=== PATIENT | female | born 1945 | race Caucasian/White ===

== ENCOUNTER 2019-08-06 15:47 | Inpatient (IN) | payer MEDICARE, OTHER ==
[~2019-08-06] VITALS: Ht 160 cm; Wt 85.8 kg
[~2019-08-06 15:47] MED LIST: ALBU90OI INH; ASCO500 PO; Aldactazide 251 EACH PO; Aspir 8181 MG PO; BETA-CAROTENE PO; CALCIUM GLUCONA45 MG PO; CENTRUM SILVER1 EAC2 PO; ESTR2 PO; FOLI1 PO; Flonase 0.05% N16 GM; GLUCHON PO; IBUP200 PO; IRON PO; Ipratropium Bro15 ML; LORA1SY PO; METO100ER PO; METO5A PO; MONT10T PO; NAPR500 PO; NIAC500ER PO; PROG100 PO; SERT50 PO
--- NOTE | 2019-08-09 06:45 | NUR ---
History, Chart, Medications and Allergies reviewed before start of procedure. Patient confirms NPO status and agrees with scheduled surgery. Lungs clear T/O to Auscultation. Patient reports completing Chlorhexadine shower X2 prior to admission to hospital. Pre-Op teaching done. Pt verbalizes understanding. NO JEWELRY, DENTURES OR HEARING DEVICES PRESENT. GLASSES TO PACU.
--- NOTE | 2019-08-09 07:25 | NUR ---
NOZIN SWABS TO BILATERAL NARES IN PREOP/SDS.
--- NOTE | 2019-08-09 07:36 | NUR ---
TRACKER CARD EXPLAINED AND OPPORTUNITY FOR QUESTIONS PROVIDED. PATIENT UP FOR UNMEASURED VOID IMMEDIATELY PRE-OR. PATIENT SLOW WITH MOVEMENTS.
--- NOTE | 2019-08-09 07:40 | NUR ---
PATIENT STATES BILATERAL HEARING DEVICES LEFT AT HOME. SOME FLANDREAU NOTED, HELPS TO GET THE PATIENT'S EYE CONTACT PRIOR TO SPEAKING.
--- NOTE | 2019-08-09 07:41 | NUR ---
PATIENT WAS VERY PAINFUL WITH STANDING AND TRANSFERRING, DID WELL WITH WALKER AND BEDSIDE COMMODE, THOUGH SLOW TO MOVE.
--- NOTE | 2019-08-09 18:30 | NUR ---
SHIFT SUMMARY PT STRUGGLED WITH NAUSEA TODAY BUT AFTER THERAPY, ZOFRAN, COOL WASHCLOTH, & A NAP SEEMS TO BE FEELING BETTER. TOOK BITES OF DINNER AND PO PAIN MEDS. UP TO VOID W/ BSC. DISCUSSED GOALS OF USING BATHROOM BUT PT NOT INTERESTED DUE. WILL ENCOURAGE BATHROOM VS BSC.
[2019-08-10 04:16] LABS: BASOPHILS ABSOLUTE AUTO 0.03 K/mm3 (0.00-0.23); BASOPHILS PERCENT AUTO 0 % (0-2); EOSINOPHILS ABSOLUTE AUTO 0.02 K/mm3 (0.00-0.68); EOSINOPHILS PERCENT AUTO 0 % (0-6); Hematocrit 28.9 % (33.0-51.0); Hemoglobin 9.8 g/dL (11.5-16.0); IMMATURE GRAN ABSOLUTE AUTO 0.06 K/mm3 (0.00-0.10); IMMATURE GRAN PERCENT AUTO 0 % (0-1); LYMPHOCYTES ABSOLUTE AUTO 1.83 K/mm3 (0.84-5.20); LYMPHOCYTES PERCENT AUTO 14 % (21-46); MONOCYTES ABSOLUTE AUTO 1.19 K/mm3 (0.16-1.47); MONOCYTES PERCENT AUTO 9 % (4-13); Mean Corpuscular HGB 31.6 pg (26.0-34.0); Mean Corpuscular HGB Conc 33.9 g/dL (31.5-36.5); Mean Corpuscular Volume 93 fL (80-100); Mean Platelet Volume 9.4 fL (9.1-12.4); NEUTROPHILS ABSOLUTE AUTO 10.47 K/mm3 (1.96-9.15); NEUTROPHILS PERCENT AUTO 77 % (41-73); Platelet Count 293 K/mm3 (150-400); RDW Coefficient Variation 12.2 % (11.7-14.2); RDW Standard Deviation 41.6 fL (35.1-46.3)
[2019-08-10 04:49] LABS: Anion Gap 10 mmol/L (6-16); Blood Urea Nitrogen 19 mg/dL (8-24); Bun/Creatinine Ratio 24.6 (12.0-20.0); CO2, Blood 22 mmol/L (21-32); Calcium, Blood 7.7 mg/dL (8.5-10.1); Chloride, Blood 102 mmol/L (98-108); Creatinine, Blood 0.77 mg/dL (0.40-1.00); Glomerular Filtration Rate >60 (60-); Glucose, Blood 106 mg/dL (70-99); Magnesium, Blood 1.4 mg/dL (1.6-2.4); Potassium, Blood 3.2 mmol/L (3.5-5.5); Sodium, Blood 134 mmol/L (136-145)
--- NOTE | 2019-08-10 06:26 | NUR ---
SHIFT SUMMARY LYING IN HIGH FOWLERS WITH EYES CLOSED. HAS RESTED WELL, AND HAS NOT REQUIRED PRN PAIN MEDS THIS SHIFT. REPOSITIONED SELF FOR COMFORT PRN. AMBULATED TO [facility] WITH GAIT BELT AND FWW X2 THIS SHIFT, TOLERATED WELL. CURRENTLY SITTING UP IN CHAIR AT BEDSIDE WHILE WATCHING TV. DENIES FURTHER NEEDS OR WANTS AT THIS TIME. SAFETY MEASURES IN PLACE. WILL GIVE HAND OFF TO ONCOMING SHIFT USING SBAR.
[2019-08-10] MEDS ORDERED: ACET500 PO (11:01)
[2019-08-10] MEDS ORDERED: OXYC5 PO (11:12)
--- NOTE | 2019-08-10 12:22 | NUR ---
DISCHARGE PT PROVIDED WITH WRITTEN AND VERBAL DISCHARGE INSTRUCTIONS. SHE REPORTED UNDERSTANDING. DRESSINGS SENT HOME WITH THE PATIENT. PT REPORTED PAIN MANAGED, VSS. PT ESCORTED OUT IN W/C BY DORYS SUTHERLAND.
== END 2019-08-10 12:20 | disposition home or self-care (01) | DRG 470 ==
LOC: SURS 08-09 06:06 → PRE IP 08-09 07:30 → SURS 08-09 11:41
PROVIDERS: ADMIT Orthopaedic Surgery
PROC: 0SRB04A Replacement of Left Hip Joint with Ceramic on Polyethylene Synthetic Substitute, Uncemented, Open Approach (ICD-10-PCS; principal; 2019-08-09 07:30)
DX: M16.12 Unilateral primary osteoarthritis, left hip (principal); I10 Essential (primary) hypertension
CPT/HCPCS: 36415; 72170; 80048; 83735; 85025; 97110; 97116; 97162; 97530; C1776; J0171; J0690; J0735; J1100; J1170; J1885; J2250; J2370; J2405; J2704; J2795; J3010; J7120

== ENCOUNTER 2020-02-28 12:21 | Day surgery (SDC) | payer MEDICARE, OTHER ==
[~2020-02-28] VITALS: Ht 160 cm; Wt 87.2 kg
[~2020-02-28 12:21] MED LIST changes: +ACET500 PO; +BETACAROTENE PO; +CIDAFLEX TABLE1 EAC1 PO; -GLUCHON PO; +OXYC5 PO
[2020-02-28] MEDS ORDERED: Transderm-Scop1 EACH TD (13:03)
--- NOTE | 2020-02-28 13:56 | NUR ---
Ambulatory in Day Surgery. Surgical site prepped with 2% Chlorhexidine cloth wipe. History, Chart, Medications and Allergies reviewed before start of procedure.Patient confirms NPO status and agrees with scheduled surgery. Patient reports completing Chlorhexadine shower X2 prior to admission to hospital. Pre-Op teaching done. Pt verbalizes understanding.
--- NOTE | 2020-02-28 14:43 | NUR ---
STUDENT RN ASSISTING IN CARE. AGREE WITH HIS CHARTING AND CARE.
[2020-02-29 04:51] LABS: BASOPHILS ABSOLUTE AUTO 0.02 K/mm3 (0.00-0.23); BASOPHILS PERCENT AUTO 0 % (0-2); EOSINOPHILS ABSOLUTE AUTO 0.01 K/mm3 (0.00-0.68); EOSINOPHILS PERCENT AUTO 0 % (0-6); Hematocrit 35.5 % (33.0-51.0); Hemoglobin 12.4 g/dL (11.5-16.0); IMMATURE GRAN ABSOLUTE AUTO 0.08 K/mm3 (0.00-0.10); IMMATURE GRAN PERCENT AUTO 1 % (0-1); LYMPHOCYTES ABSOLUTE AUTO 0.99 K/mm3 (0.84-5.20); LYMPHOCYTES PERCENT AUTO 7 % (21-46); MONOCYTES ABSOLUTE AUTO 0.61 K/mm3 (0.16-1.47); MONOCYTES PERCENT AUTO 4 % (4-13); Mean Corpuscular HGB 33.2 pg (26.0-34.0); Mean Corpuscular HGB Conc 34.9 g/dL (31.5-36.5); Mean Corpuscular Volume 95 fL (80-100); Mean Platelet Volume 9.5 fL (9.1-12.4); NEUTROPHILS ABSOLUTE AUTO 12.22 K/mm3 (1.96-9.15); NEUTROPHILS PERCENT AUTO 88 % (41-73); Platelet Count 354 K/mm3 (150-400); RDW Coefficient Variation 11.9 % (11.7-14.2); RDW Standard Deviation 41.6 fL (35.1-46.3); Red Blood Cell Count 3.74 M/mm3 (3.80-5.20); White Blood Cell Count 13.93 K/mm3 (4.00-11.30)
[2020-02-29 05:15] LABS: Anion Gap 7 mmol/L (6-16); Blood Urea Nitrogen 18 mg/dL (8-24); Bun/Creatinine Ratio 24.4 (12.0-20.0); CO2, Blood 26 mmol/L (21-32); Calcium, Blood 8.6 mg/dL (8.5-10.1); Chloride, Blood 97 mmol/L (98-108); Creatinine, Blood 0.74 mg/dL (0.40-1.00); Glomerular Filtration Rate >60 (60-); Glucose, Blood 111 mg/dL (70-99); Magnesium, Blood 1.5 mg/dL (1.6-2.4); Potassium, Blood 3.5 mmol/L (3.5-5.5); Sodium, Blood 130 mmol/L (136-145)
--- NOTE | 2020-02-29 05:25 | NUR ---
SHIFT SUMMARY PATIENT HAD A VERY HARD TIME SLEEPING LAST NIGHT. SHE DID NOT REQUIRE PRN MEDICATION FOR PAIN LAST NIGHT. SHE WAS ABLE TO GET OOB TO THE BR WITH FWW, GAIT BELT, AND 1 PERSON SBA. ABLE TO VOID, EATING AND DRINKING. RT KNEE WITH AQUACEL DRESSING (CDI). NO ACUTE CHANGES, CALL LIGHT IN REACH.
[2020-02-29] MEDS ORDERED: OXYC5 PO (11:37)
--- NOTE | 2020-02-29 13:56 | NUR ---
DISCHARGE SUMMARY PT REPORTS TOLERATABLE PAIN. PT ESCORTED OUT VIA WC. PT WORKED WELL WITH PT AND IS EAGER TO GO HOME. PATIENT EDUCATION GIVERN TO PT AND SPOUSE. SCPRIPT GIVEN TO PT. POLAR PACK SENT HOME WITH PT.
== END 2020-02-29 13:40 | disposition home or self-care (01) ==
LOC: ORSCMMR 12:21 → ORD 14:15 → SURS 17:37 → ORSCMMR 02-29 13:40
PROVIDERS: Orthopaedic Surgery
PROC: 0SRC069 Replacement of Right Knee Joint with Oxidized Zirconium on Polyethylene Synthetic Substitute, Cemented, Open Approach (ICD-10-PCS; principal; 2020-02-28 14:15)
DX: M17.11 Unilateral primary osteoarthritis, right knee (principal); I10 Essential (primary) hypertension; J44.9 Chronic obstructive pulmonary disease, unspecified; E66.9 Obesity, unspecified; Z68.34 Body mass index [BMI] 34.0-34.9, adult; Z79.899 Other long term (current) drug therapy
CPT/HCPCS: 73560-RT; 80048; 83735; 85025; 88300; 97110; 97116; 97162; A9270-GY; C1713; C1776; J0171; J0690; J0735; J1100; J1885; J2370; J2405; J2704; J2795; J3010; J7120

== ENCOUNTER → 2020-07-03 | Outpatient (CLI) | payer MEDICARE, OTHER ==
[~2020-07-03] MED LIST changes: +Transderm-Scop1 EACH TD
== END | disposition home or self-care (01) ==
LOC: LAB SHORT 09:44 → PLD 09:44
DX: D22.71 Melanocytic nevi of right lower limb, including hip (principal)
CPT/HCPCS: 88305

== ENCOUNTER 2020-10-04 06:04 | Day surgery (SDC) | payer MEDICARE, OTHER ==
[~2020-10-04] VITALS: Ht 160 cm; Wt 85.4 kg
--- NOTE | 2020-10-04 11:12 | NUR ---
1110-ABD SOFT. INCISIONS WELL SEALED
--- NOTE | 2020-10-04 13:05 | NUR ---
PT NEEDED SOME XTRA TIME TO RECOVER. SPENT TIME MAKING HER COMFORTABLE AND ALLOWING HER TO SLEEP BEFORE SENDING HER HOME. PT ABLE TO DEEP BREATHE AND COUGH WITH GAURDING TO ABDOMEN. PT VSS REMAINED STABLE AND I WAS ABLE TO WEAN HER OFF OF O2 WITH AN SPO2 MAINTAINING AT 94% BEFORE D/C HOME. INCISIONSX3 to procedure site clean, dry, intact with no visible drainage, swelling, erythema or bruising noted. Patient up to Ambulate independently. Gait steady. Discharge instructions reviewed with patient. Patient verbalizes understanding. Copy given to patient to take home. Patient States Post-Procedure ride home has been arranged. Discharged via wheelchair to private car for ride home. GLASSES AND BOTH HEARING AIDES RETURNED TO PATIENT ALONG WITH ALL OTHER BELONINGINGS.
--- NOTE | 2020-10-05 13:11 | NUR ---
10/05/20 1311 India Waite VERIFICATIONS: EDIT CHART.
== END 2020-10-04 22:41 | disposition home or self-care (01) ==
LOC: ORSCMMR 06:04
PROVIDERS: Surgery
PROC: 0WUF4JZ Supplement Abdominal Wall with Synthetic Substitute, Percutaneous Endoscopic Approach (ICD-10-PCS; principal; 2020-10-04 07:30)
PROC: 8E0W4CZ Robotic Assisted Procedure of Trunk Region, Percutaneous Endoscopic Approach (ICD-10-PCS; principal; 2020-10-04 07:30)
DX: K43.6 Other and unspecified ventral hernia with obstruction, without gangrene (principal); I10 Essential (primary) hypertension; J44.9 Chronic obstructive pulmonary disease, unspecified; Z87.891 Personal history of nicotine dependence; Z86.73 Personal history of transient ischemic attack (TIA), and cerebral infarction without residual deficits; Z79.899 Other long term (current) drug therapy; Z79.82 Long term (current) use of aspirin
CPT/HCPCS: 49653; S2900; A9270; C1781; J0690; J1100; J2405; J2704; J3010; J7120

== ENCOUNTER → 2021-07-31 | Outpatient (CLI) | payer MEDICARE, OTHER | LOC: LAB 11:15 → LAB SHORT 11:15 | DX: D48.5 Neoplasm of uncertain behavior of skin (principal); Z91.041 Radiographic dye allergy status; Z91.048 Other nonmedicinal substance allergy status | CPT/HCPCS: 88305 ==

== ENCOUNTER 2021-08-15 18:57 | Inpatient (IN) | payer MEDICARE, OTHER ==
[~2021-08-15] VITALS: Ht 160 cm; Wt 79.7 kg
[~2021-08-15 18:57] MED LIST changes: +ALDACTAZIDE 251 EACH PO; -Aldactazide 251 EACH PO
[2021-08-15 19:45] LABS: BASOPHILS ABSOLUTE AUTO 0.04 K/mm3 (0.00-0.23); BASOPHILS PERCENT AUTO 0 % (0-2); EOSINOPHILS PERCENT AUTO 0 % (0-6); Hematocrit 41.9 % (33.0-51.0); Hemoglobin 14.1 g/dL (11.5-16.0); IMMATURE GRAN ABSOLUTE AUTO 0.15 K/mm3 (0.00-0.10); IMMATURE GRAN PERCENT AUTO 1 % (0-1); LYMPHOCYTES ABSOLUTE AUTO 1.48 K/mm3 (0.84-5.20); LYMPHOCYTES PERCENT AUTO 6 % (21-46); MONOCYTES ABSOLUTE AUTO 1.15 K/mm3 (0.16-1.47); MONOCYTES PERCENT AUTO 5 % (4-13); Mean Corpuscular HGB 30.8 pg (26.0-34.0); Mean Corpuscular HGB Conc 33.7 g/dL (31.5-36.5); Mean Corpuscular Volume 92 fL (80-100); Mean Platelet Volume 10.6 fL (9.1-12.4); NEUTROPHILS ABSOLUTE AUTO 20.52 K/mm3 (1.96-9.15); NEUTROPHILS PERCENT AUTO 88 % (41-73); Platelet Count 412 K/mm3 (150-400); RDW Coefficient Variation 11.9 % (11.7-14.2); RDW Standard Deviation 39.8 fL (35.1-46.3); Red Blood Cell Count 4.58 M/mm3 (3.80-5.20); White Blood Cell Count 23.34 K/mm3 (4.00-11.30)
[2021-08-15 20:03] LABS: Alanine Aminotransfer (ALT/SGP 21 U/L (12-78); Albumin, Blood 2.9 g/dL (3.4-5.0); Albumin/Globulin Ratio 0.7 (0.8-1.8); Alk Phos 114 U/L (50-136); Anion Gap 8 mmol/L (6-16); Aspartate Aminotrans (AST/SGOT 30 U/L (12-37); Bilirubin, Total 0.7 mg/dL (0.1-1.0); Blood Urea Nitrogen 37 mg/dL (8-24); Bun/Creatinine Ratio 49.9 (12.0-20.0); CO2, Blood 33 mmol/L (21-32); Chloride, Blood 96 mmol/L (98-108); Creatinine, Blood 0.74 mg/dL (0.40-1.00); Globulin, Blood 4.4 g/dL (2.2-4.0); Glomerular Filtration Rate >60 (60-); Glucose, Blood 119 mg/dL (70-99); Magnesium, Blood 1.3 mg/dL (1.6-2.4); Potassium, Blood 2.9 mmol/L (3.5-5.5); Sodium, Blood 137 mmol/L (136-145); Total Protein, Blood 7.3 g/dL (6.4-8.2)
[2021-08-15 20:03] LABS: Source, Urine Catheter
[2021-08-15 20:05] LABS: Appearance, Urine Hazy (Clear); Bilirubin, Urine Neg (Neg); Blood, Urine 2+ (Neg); Color, Urine Yellow (P-Yellow); Glucose Qualitative, Urine Neg (Neg); Ketones, Urine Neg (Neg); Leukocyte Esterase, Urine 1+ (Neg); Nitrite, Urine Neg (Neg); Protein, Urine 2+ (Neg); Specific Gravity, Urine 1.025 (1.003-1.022); Urobilinogen, Urine NORM (Normal)
[2021-08-15 20:21] LABS: Amorphous Mod (0-Heavy); Bacteria Many /hpf; Squamous Epithelial Cells Rare /hpf (Few)
[2021-08-15 20:29] LABS: Calcium, Blood 15.8 mg/dL (8.5-10.1)
[2021-08-15 20:55] LABS: Phosphorus, Blood 2.6 mg/dL (2.5-4.9)
[2021-08-16 04:37] LABS: BASOPHILS ABSOLUTE AUTO 0.06 K/mm3 (0.00-0.23); BASOPHILS PERCENT AUTO 0 % (0-2); EOSINOPHILS ABSOLUTE AUTO 0.04 K/mm3 (0.00-0.68); EOSINOPHILS PERCENT AUTO 0 % (0-6); Hematocrit 37.3 % (33.0-51.0); Hemoglobin 12.5 g/dL (11.5-16.0); IMMATURE GRAN ABSOLUTE AUTO 0.09 K/mm3 (0.00-0.10); IMMATURE GRAN PERCENT AUTO 1 % (0-1); LYMPHOCYTES PERCENT AUTO 7 % (21-46); MONOCYTES ABSOLUTE AUTO 1.31 K/mm3 (0.16-1.47); MONOCYTES PERCENT AUTO 7 % (4-13); Mean Corpuscular HGB 30.4 pg (26.0-34.0); Mean Corpuscular HGB Conc 33.5 g/dL (31.5-36.5); Mean Corpuscular Volume 91 fL (80-100); NEUTROPHILS ABSOLUTE AUTO 15.04 K/mm3 (1.96-9.15); NEUTROPHILS PERCENT AUTO 84 % (41-73); Platelet Count 331 K/mm3 (150-400); RDW Coefficient Variation 11.9 % (11.7-14.2); RDW Standard Deviation 39.8 fL (35.1-46.3); Red Blood Cell Count 4.11 M/mm3 (3.80-5.20); White Blood Cell Count 17.84 K/mm3 (4.00-11.30)
[2021-08-16 05:19] LABS: Alanine Aminotransfer (ALT/SGP 18 U/L (12-78); Albumin, Blood 2.3 g/dL (3.4-5.0); Albumin/Globulin Ratio 0.6 (0.8-1.8); Alk Phos 99 U/L (50-136); Anion Gap 6 mmol/L (6-16); Aspartate Aminotrans (AST/SGOT 25 U/L (12-37); Bilirubin, Total 0.4 mg/dL (0.1-1.0); Blood Urea Nitrogen 35 mg/dL (8-24); Bun/Creatinine Ratio 57.9 (12.0-20.0); CO2, Blood 29 mmol/L (21-32); Calcium, Blood 14.2 mg/dL (8.5-10.1); Chloride, Blood 104 mmol/L (98-108); Globulin, Blood 4.1 g/dL (2.2-4.0); Glomerular Filtration Rate >60 (60-); Glucose, Blood 107 mg/dL (70-99); Potassium, Blood 3.2 mmol/L (3.5-5.5); Sodium, Blood 139 mmol/L (136-145); Total Protein, Blood 6.4 g/dL (6.4-8.2)
--- NOTE | 2021-08-16 06:06 | NUR ---
PT ARRIVAL TO UNIT AT APPROC 0145. A/OX1-2. CONFUSED. GENERALIZED WEAKNESS. IV POTASSIUM RUNNING. PALLIATIVE CONSULT PENDING FOR TODAY, 08/16. DENIED PAIN. DRY COUGH. LS CLEAR. BED ALARM PLACE ON PT. USING BEDPAN. OCCASIONALLY INCONTINENT.
--- NOTE | 2021-08-16 10:21 | NUR ---
SWALLOW: ATTEMPTED TO GIVE PT SIP OF WATER THIS AM, PT SLOW TO SWALLOW AND COUGHED AFTER TAKING A SIP. PT IS ORIENTED, BUT TIRED AND WEAK, SLOW TO RESPOND. THIS RN UNCOMFORTABLE GIVING PO MEDS AT THIS TIME DUE TO RISK OF ASPIRATION. ATTEMPTED TO CALL DR. YUAN AT 1020 CONCERNING THIS, AWAITING CALL BACK. WILL KEEP PT NPO AT THIS TIME.
--- NOTE | 2021-08-16 14:54 | NUR ---
PT LEFT FOR MRI AT ABOUT 1420
--- NOTE | 2021-08-16 18:16 | NUR ---
MRI: PT ANXIOUS AND COMPLAINING OF CLAUSTROPHOBIA DURING MRI. PT GIVEN 1MG ATIVAN AND 4MG ZOFRAN. PT THEN ABLE TO COMPLETE SCAN AND RETURNED TO ROOM AT ABOUT 1530. PT AT BEDSIDE AND ASKING FOR AN UPDATE FROM , DR. YUAN NOTIFIED AND AT BEDSIDE TO SPEAK WITH AT ABOUT 1730.
--- NOTE | 2021-08-16 18:36 | NUR ---
SUMMARY: PT ADMITTED FOR N/V AND CONFUSION. NO ACUTE CHANGE TODAY, VSS, PT IS DROWSY, OREINTED X3, SLOW TO RESPOND. TELE STABLE, PT DENIES CP. STABLE ON 2L NC, SP02 DECREASES WITH SLEEP. PT FOLLOWS COMMANDS SLOWLY. NOT ATTEMPTING OOB, BED ALARM ON FOR SAFETY. PT ABLE TO AMBULATE IN ROOM WITH THERAPY AND SIT IN RECLINER, HAS GENERALIZED WEAKNESS. MRI OF HEAD COMPLETED TODAY, PLAN IS FOR BIOPSY, IMAGING NOTIFIED OF THIS TONIGHT DUE TO UNABLE TO COMPLETE TODAY. FIREWALL SECURITY ENGINEER RECOMMENDS TO SPEAK WITH THE RADIOLOGIST TOMORROW SINCE THEY ARE UNAVALIBLE TONIGHT. WILL MAKE NOC RN AWARE AND CTM.
--- NOTE | 2021-08-17 04:25 | NUR ---
PT IN BED WHERE SHE REMAINS MUCH OF THE NIGHT AND IS RESTING QUIETLY. ALERT, AWAKE AND IS CONFUSED, CONDITION IS STABLE. C/O PAIN AND MEDICATED WITH PRN DILAUDID ACCORDINGLY. ASSISTED WITH CARE AND ADL, ASSISTED WITH REPOSITIONING TO ENHANCE COMFORT, KEPT CLEAN AND DRY, MEDICATED WITH ORDERED MEDS. PT ENCOURAGED TO CALL FOR HELP WHEN ASSISTANCE IS NEEDED SHE IS MONITORED.
[2021-08-17 06:17] LABS: Magnesium, Blood 1.3 mg/dL (1.6-2.4)
[2021-08-17 06:34] LABS: Alanine Aminotransfer (ALT/SGP 25 U/L (12-78); Albumin, Blood 2.6 g/dL (3.4-5.0); Albumin/Globulin Ratio 0.7 (0.8-1.8); Alk Phos 113 U/L (50-136); Anion Gap 9 mmol/L (6-16); Aspartate Aminotrans (AST/SGOT 27 U/L (12-37); Bilirubin, Total 0.4 mg/dL (0.1-1.0); Blood Urea Nitrogen 35 mg/dL (8-24); Bun/Creatinine Ratio 54.7 (12.0-20.0); CO2, Blood 29 mmol/L (21-32); Chloride, Blood 107 mmol/L (98-108); Creatinine, Blood 0.64 mg/dL (0.40-1.00); Globulin, Blood 3.9 g/dL (2.2-4.0); Glomerular Filtration Rate >60 (60-); Glucose, Blood 95 mg/dL (70-99); Potassium, Blood 3.3 mmol/L (3.5-5.5); Sodium, Blood 145 mmol/L (136-145); Total Protein, Blood 6.5 g/dL (6.4-8.2)
[2021-08-17 06:35] LABS: Calcium, Blood 11.8 mg/dL (8.5-10.1)
--- NOTE | 2021-08-17 15:00 | NUR ---
DR. LOVE'S OFFICE NOTIFIED AT ABOUT 0900 THAT BIOPSY CANCELED AND NEEDS REORDERED TODAY. RADIOLOGY ALSO NOTIFIED THAT DR. LOVE WOULD LIKE BIOPSY. WILL MONITOR.
--- NOTE | 2021-08-17 15:02 | NUR ---
AT ABOUT 1230 RECEIVED CALL FROM RETAIL ASSOCIATE. [facility] STATES THAT RADIOLOGIST DR HERRERA UNABLE TO COMPLETE BIOPSY TODAY AND NEEDS TO BE SCHEDULED FOR FRIDAY. THIS RN SPOKE WITH DR. LOVE'S OFFICE TO RELAY THIS MESSAGE AND DR. YUAN ALSO NOTIFIED. AT ABOUT 1445 PT IN ROOM AND MADE AWARE OF PLAN FOR BIOPSY ON FRIDAY, PT WOULD LIKE TO SPEAK WITH DR. YUAN. DR. YUAN AND [facility] NOTIFIED THAT PT IN ROOM... WILL CTM.
--- NOTE | 2021-08-17 18:08 | NUR ---
Case conferenced with pt's RN re: new referral, new stage IV, metastatic CA dx with unknown origin earlier this afternoon. Dr Kim and I made joint visit when additional family members arrived. Pt's , son, pawel and pt's bedside RN present during family conference. discussed findings, concerns for pt's tolerance of chemo and plan of care, while waiting for biopsy. He discussed code status and recommendations. He answered family questions. Per , Anna was in her usual state of activity and health up until a number of weeks ago. He states they have never discussed code status or advanced care planning for events like the one she is currently experiencing. asked family to consider code status and treatment options that may be offered with quality of life in mind due to advanced metastatic disease. [facility] to continue to follow. Family invited to call or contact [facility] over the weekend with quesitons or desire to discuss anything.
--- NOTE | 2021-08-17 18:33 | NUR ---
SUMMARY: NO ACUTE CHANGE TODAY. VSS. PT CONTINUES TO BE LETHARGIC, AWAKENS TO VOICE BUT PT DID NOT RESPOND TO ORIENTATION QUESTIONS THIS MORNING. VERY SLOW TO FOLLOW COMMANDS. PT VERY WEAK WHILE WORKING WITH THERAPY, SEE NOTES. PT HAD SERVERAL INCONTINANT VOIDS. REPOSITIONED FOR COMFORT AND PRN. PT HAS DENIED PAIN TODAY AND HAS SLEPT THE MAJORITY OF THE DAY. DR. YUAN, MYSELF AND PALLIATIVE CARE RN AT BEDSIDE TONIGHT TO DISCUSS PLAN OF CARE WITH PT , SON, AND DAUGHTER IN LAW. SEE PALLIATIVE CARE NOTE. PLAN IS FOR BIOPSY ON FRIDAY. PT TO BE KEPT NPO FOR ASPIRATION PRECAUTIONS, PER DR. YUAN, TO EVALUATE NEED FOR IV NUTRITION IN THE NEXT FEW DAYS. BED ALARM ON FOR SAFETY. WILL CTM AND REPORT TO NOC RN.
[2021-08-18 04:49] LABS: Magnesium, Blood 1.4 mg/dL (1.6-2.4)
[2021-08-18 04:53] LABS: Anion Gap 5 mmol/L (6-16); Blood Urea Nitrogen 28 mg/dL (8-24); Bun/Creatinine Ratio 47.9 (12.0-20.0); CO2, Blood 27 mmol/L (21-32); Chloride, Blood 115 mmol/L (98-108); Creatinine, Blood 0.59 mg/dL (0.40-1.00); Glomerular Filtration Rate >60 (60-); Glucose, Blood 95 mg/dL (70-99); Potassium, Blood 3.1 mmol/L (3.5-5.5); Sodium, Blood 147 mmol/L (136-145)
--- NOTE | 2021-08-18 06:57 | NUR ---
SHIFT SUMMA[place] S/O NEW STAGE 4 CANCER DX, INTERMITTENTLY ALERT AND ORIENTED TO SELF ONLY OR LETHARGIC c LIMITED TRACKING ABILITY, UNABLE TO VERBALIZE PAIN, ANXIOUS AT TIMES. C/O DRY MOUTH, ORAL SWABS GIVEN THOUGH PT COUGHED AFTER A FEW SWABS. NPO DUE TO ASPIRATION. NO ACUTE EVENTS THIS SHIFT. CALL LIGHT IN REACH, REPORT GIVEN TO DAY RN.
--- NOTE | 2021-08-18 10:18 | NUR ---
voids: PT HAS BEEN HAVING INCONTINENT VOIDS IN ATTENDS, HOWEVER PT COMPLAINS OF NOT FEELING IF SHE IS EMPTYING HER BLADDER. BLADDER SCAN DONE, >700. MD CALLED WITH ORDERS FOR STRAIGHT CATH PRN.
--- NOTE | 2021-08-18 17:41 | NUR ---
PT HAS BEEN STABLE THIS SHIFT. MENTATION HAS CLEARED. PT ORIENTED AND APPROPRIATE.PT HAS SPEECH EVAL AND NEW ORDERS PLACED FOR DIET. PT HAS BEEN TAKING PUREE DIET WITHOUT DIFFICULTY. ORAL CARE DONE PT TOLERATED. PT HAS NO NAUSEA, VOMITING OR PAIN. PT UP TO CHAIR WITH LIFT. MOLINA INSERTED THIS AM FOR URINARY RETENTION. FAMILY AT BEDSIDE TO ASSIST PT WITH CARE.
--- NOTE | 2021-08-19 04:41 | NUR ---
PT IN BED AND IS RESTING. ALERT AND AWAKE MUCH OF THE NIGHT. C/O N/V AND MEDICATED WITH IV ZOFRAN. ASSISTED WITH CARE AND ADLS, ASSISTED WITH BATHROOM AND TOILETING NEEDS. PT REMINDED TO CALL FOR HELP WHEN ASSISTANCE IS NEEDED SHE IS MONITORED.
[2021-08-19 05:36] LABS: Anion Gap 7 mmol/L (6-16); Blood Urea Nitrogen 22 mg/dL (8-24); Bun/Creatinine Ratio 38.7 (12.0-20.0); CO2, Blood 25 mmol/L (21-32); Calcium, Blood 8.6 mg/dL (8.5-10.1); Chloride, Blood 110 mmol/L (98-108); Creatinine, Blood 0.57 mg/dL (0.40-1.00); Glomerular Filtration Rate >60 (60-); Glucose, Blood 109 mg/dL (70-99); Magnesium, Blood 1.3 mg/dL (1.6-2.4); Potassium, Blood 3.7 mmol/L (3.5-5.5); Sodium, Blood 142 mmol/L (136-145)
--- NOTE | 2021-08-19 13:32 | NUR ---
Patient hot to touch. vss taken and temp. 102.0, resp. 24, bp 139/83, pulse is 124. O2 added at 2L per nc for sat 94%. Dr. Tenorio called at this time and new orders recieved for iv lasix, tylenol suppository. Palliative care to see pt. this afternoon.
--- NOTE | 2021-08-19 16:27 | NUR ---
SHIFT SUMMARY; PATIENT RESTLESS EARLIER TODAY AND C/O ACHING ALL OVER. TEMP UP TO 102.,TYLENOL ID GIVEN , EFFECTIVE. DR. CHILEL NOTIFIED AND AWARE. AT THIS TIME TEMP IS 100.8. FAMILY IN ROOM AND PT. MORE ALERT SINCE FEVER HAS SUBSIDED. LASIX GIVEN TODAY (40MG IV) AND PT. HAS HAD 1100ML OUT CLEAR YELLOW, SO FAR. BREATHING IS NON LABORED AT THIS TIME AND PT. REQUEST PUDDING, GIVEN. DID NOT EAT BREAKFAST OR LUNCH TODAY DUE TO NAUSEA AND FEVER. DENIES NAUSEA AT THIS TIME. ZOFRAN EFFECTIVE FOR COMPLAINT. PAIN MED GIVEN EARLIER ALSO AND PT. DID VERBALIZE RELIEF.
--- NOTE | 2021-08-19 17:26 | NUR ---
Met with pt and her family at the request of Surgical billing and accounting staff assistant. Upon arrival, pt was sitting in bed, with daughter and other family in the room. The pt states she "doesn't feel great today" and tells me she was running a fever earlier today. She is agreeable to focused pain assessment. She states her pain is a 5/10 throughout her entire body, with the left hip pain at 7/10 currently. She is unable to describe the kind of pain, other than "really achy and deep". She states activity does make it worse, but so does being in one place for too long. Daughter states the L hip pain has been a problem since having a hip replacement several years ago. The pt states she would like to get her pain down to a 2-3/10. After reviewing current medication regimen, will continue to monitor and will make suggestion for both a long acting oral and a breakthrough oral opioid for this patient with hospitalist.
--- NOTE | 2021-08-19 22:16 | NUR ---
REPORTED ON SHIFT AND OBSERVED PT IN BED IN HER ROOM, NOT VERY TALKATIVE. SHE IS LETHARGIC, HAS A LOW GRADE TEMP. TYLENOL GIVEN, UPDATED UPDATED ON CONDITON AND STARTED HER ON IV CIPRO. PT WAS ASSISTED WITH REPOSITIONING FOR COMFORT, KEPT CLEAN AND DRY, MEDICATED INDICATED. CALL LIGHT GIVEN TO HER AND URGED TO CALL FOR HELP WHEN ASSISTANCE IS NEEDED SHE IS MONITORED.
--- NOTE | 2021-08-20 01:18 | NUR ---
Pt observed having difficulty breathing, was shaking, c/o chills along with temp elevation. Staff called rapid response, Dr Horvath arrived and ordered her to be transferred to ICU. was updated on pt condition and advised of her ICU transfer. Pt was transferred to ICU at 0100 in rm 14.
[2021-08-20 01:56] LABS: Hematocrit 37.1 % (33.0-51.0); Hemoglobin 12.7 g/dL (11.5-16.0); Mean Corpuscular HGB 30.5 pg (26.0-34.0); Mean Corpuscular HGB Conc 34.2 g/dL (31.5-36.5); Mean Corpuscular Volume 89 fL (80-100); Mean Platelet Volume 10.4 fL (9.1-12.4); Platelet Count 298 K/mm3 (150-400); RDW Coefficient Variation 12.4 % (11.7-14.2); RDW Standard Deviation 40.5 fL (35.1-46.3); Red Blood Cell Count 4.17 M/mm3 (3.80-5.20); White Blood Cell Count 14.91 K/mm3 (4.00-11.30)
--- NOTE | 2021-08-20 02:01 | NUR ---
0055: PT ARRIVES TO ICU VIA BED FROM SURGICAL FLOOR POST RAPID RESPONSE, STEAM CRANE OPERATOR AND DR QUINTANA AT BEDSIDE. PT IS NOTED LETHARGIC, OPENS EYES TO STATED NAME HOWEVER DOES NOT FOLLOW COMMANDS OR VERBALIZE AT THIS TIME. PUPILS RESPOND BRISKLY TO LIGHT AND ARE EQUAL BILAT. RESPIRATORY RATE IS NOTED ELEVATED TO THE 40S, SATS ARE LOW TO MID 90S WITH OXYGEN VIA NASAL CANNULA AT 4 L/MIN, LUNGS CLEAR MID TO UPPER BILAT, LEFT LOWER LOBE WITH FAINT END EXPIRATORY WHEEZE NOTED, WILL MONITOR. HRR, PULSES NOTED FULL X 4 EXTREMITIES WITH BRISK CAP REFILL, MOTTLING IS NOTED TO KNEES BILAT, BRISK CAP REFILL, NO EDEMA, SKIN IS HOT TO THE TOUCH. MOLINA CATH IN PLACE DRAINING CLOUDY SEBASTIAN URINE TO GRAVITY AT THIS TIME. SKIN OVERALL DRY AND INTACT. BLANKETS REMOVED. 0107: RECTAL TEMP PROBE PLACED, TEMP IS NOTED 105.8, FAN DIRECTED AT PT, ROOM THERMOSTAT DECREASED, WILL MONITOR. 0115: TEMP UP TO 106.0 PER RECTAL PROBE, ICE PACKS PLACED TO POSTERIOR NECK AND BILAT AXILLA. WILL MONITOR 0125: SALINE STARTED INFUSING PER ORDERS, PT TEMP NOTED IMPROVING SLOWLY, WILL CONT TO MONITOR. 0130: SOLUMEDROL ADMIN, LAB AT BEDSIDE FOR BLOOD CULTURES, ZOSYN SCANNED, INFUSION INITATED AT COMPLETION OF BLOOD DRAW. 0140: TEMP REMAINS ELEVATED ALTHOUGH SLOWLY IMPROVING, PT MENTATION IS IMPROVED AT THIS TIME AND SHE IS ABLE TO STATE THAT SHE IS AT [facility] BECAUSE SHE IS "REALLY SICK." PT DID VOMIT AFTER ADMINISTRATION OF PO TYLENOL EARLIER THIS SHIFT, TYLENOL ADMIN LA AT THIS TIME.
[2021-08-20 02:05] LABS: International Normalized Ratio 1.38; Prothrombin Time Results 14.2 Sec (9.7-11.5)
[2021-08-20 02:07] LABS: Albumin, Blood 2.2 g/dL (3.4-5.0); Albumin/Globulin Ratio 0.6 (0.8-1.8); Bilirubin, Total 0.7 mg/dL (0.1-1.0); Bun/Creatinine Ratio 24.8 (12.0-20.0); Calcium, Blood 7.7 mg/dL (8.5-10.1); Creatinine, Blood 0.93 mg/dL (0.40-1.00); Globulin, Blood 3.9 g/dL (2.2-4.0); Total Protein, Blood 6.1 g/dL (6.4-8.2)
[2021-08-20 02:17] LABS: BAND PERCENT MAN 13 % (0-8); BASOPHILS ABSOLUTE MAN 0.29 K/mm3 (0.00-0.23); BASOPHILS PERCENT MAN 2 % (0-2); EOSINOPHILS PERCENT MAN 0 % (0-6); LYMPHOCYTES ABSOLUTE MAN 0.29 K/mm3 (0.84-5.20); LYMPHOCYTES PERCENT MAN 2 % (21-46); METAMYELOCYTE ABSOLUTE MAN 0.29 K/mm3 (0.00-0.00); METAMYELOCYTE PERCENT MAN 2 % (0-0); MONOCYTES ABSOLUTE MAN 0.29 K/mm3 (0.16-1.47); MONOCYTES PERCENT MAN 2 % (4-13); NEUTROPHILS ABSOLUTE MAN 13.71 K/mm3 (1.96-9.15); SEG NEUTROPHILS PERCENT MAN 79 % (41-73); TOTAL CELLS COUNTED 100
--- NOTE | 2021-08-20 06:10 | NUR ---
PT IS MORE ALERT THIS AM, AWAKE AND WATCHING TV IN ROOM AT THIS TIME. SPEAKS IN FULL SENTENCES AND IS ABLE TO STATE THAT SHE IS AT [facility], "THEY'RE TRYING TO FIGURE OUT WHAT'S GOING ON WITH ME" PRESSURES HAVE TRENDED DOWN FROM LOW 100S SYSTOLIC TO 80S SYSTOLIC, MAP MAINTAINS 70S, THIS WAS DISCUSSED WITH DR QUINTANA AND NS 500 ML BOLUS X 1 WAS ORDERED, CURRENTLY INFUSING WITH PRESSURES IMPROVING. INITIAL TEMP OF 106 HAS DECREASED TO 99.5. LUNG SOUNDS REMAIN CLEAR WITH INTERMITTENT EXPIRATORY WHEEZE NOTED, SATS LOW TO MID 90S, OXYGEN DECREASED FROM 4 L/MIN VIA NASAL CANNULA TO 3 L/MIN VIA NASAL CANNULA. URINE 275 ML OUT SINCE ARRIVAL AT 0055 THIS AM, WILL CONT TO MONITOR.
[2021-08-20 08:36] LABS: Hematocrit 35.5 % (33.0-51.0); Hemoglobin 11.9 g/dL (11.5-16.0); Mean Corpuscular HGB 30.2 pg (26.0-34.0); Mean Corpuscular HGB Conc 33.5 g/dL (31.5-36.5); Mean Corpuscular Volume 90 fL (80-100); Mean Platelet Volume 10.1 fL (9.1-12.4); Platelet Count 246 K/mm3 (150-400); RDW Coefficient Variation 12.5 % (11.7-14.2); RDW Standard Deviation 41.3 fL (35.1-46.3); Red Blood Cell Count 3.94 M/mm3 (3.80-5.20); White Blood Cell Count 20.24 K/mm3 (4.00-11.30)
[2021-08-20 08:58] LABS: Anion Gap 7 mmol/L (6-16); Blood Urea Nitrogen 23 mg/dL (8-24); Bun/Creatinine Ratio 26.3 (12.0-20.0); CO2, Blood 23 mmol/L (21-32); Chloride, Blood 110 mmol/L (98-108); Creatinine, Blood 0.88 mg/dL (0.40-1.00); Glomerular Filtration Rate >60 (60-); Glucose, Blood 151 mg/dL (70-99); Magnesium, Blood 1.3 mg/dL (1.6-2.4); Potassium, Blood 3.6 mmol/L (3.5-5.5); Sodium, Blood 140 mmol/L (136-145)
[2021-08-21 03:38] LABS: Hematocrit 31.5 % (33.0-51.0); Hemoglobin 10.7 g/dL (11.5-16.0); Mean Corpuscular HGB 30.1 pg (26.0-34.0); Mean Corpuscular Volume 89 fL (80-100); Mean Platelet Volume 10.5 fL (9.1-12.4); Platelet Count 204 K/mm3 (150-400); RDW Coefficient Variation 12.6 % (11.7-14.2); RDW Standard Deviation 41.5 fL (35.1-46.3); Red Blood Cell Count 3.56 M/mm3 (3.80-5.20); White Blood Cell Count 15.42 K/mm3 (4.00-11.30)
[2021-08-21 04:00] LABS: Anion Gap 7 mmol/L (6-16); Blood Urea Nitrogen 28 mg/dL (8-24); Bun/Creatinine Ratio 36.5 (12.0-20.0); CO2, Blood 23 mmol/L (21-32); Chloride, Blood 110 mmol/L (98-108); Creatinine, Blood 0.77 mg/dL (0.40-1.00); Glomerular Filtration Rate >60 (60-); Glucose, Blood 127 mg/dL (70-99); Magnesium, Blood 1.2 mg/dL (1.6-2.4); Potassium, Blood 3.2 mmol/L (3.5-5.5); Sodium, Blood 140 mmol/L (136-145)
--- NOTE | 2021-08-21 06:13 | NUR ---
PT IS CALM COOPERATIVE, RESTING IN BED. NO SIGNIFICANT EVENTS THIS SHIFT
--- NOTE | 2021-08-21 08:00 | NUR ---
ASSUMED CARE PT ALERT AND ORIENTED X4. ABLE TO AMBULATE TO CHAIR FROM BED WITH MODERATE ASSISTANCE WITH WALKER. SHE IS AFEBRILE. LUNGS HAVE SMALL EXP. WHEEZE AND ARE DIMINISHED, ON 4L O2 NC, SPO2 >95%. HR IS SINUS RHYTHM TO SINUS TACH WITH MULTIPLE PAC'S, RATE 90-110'S. BP NORMOTENSIVE. ABDOMEN IS MODERATELY DISTENDED AND SHE C/O FEELING BLOATED AND FULL. GAUZE BANDAGE, C/D/I, TO RIGHT ABDOMEN FROM BIOPSY DONE YESTERDAY. SHE DENIES NAUSEA OR VOMITING. MOLINA PATENT, DRAINING CLEAR YELLOW URINE TO GRAVITY. SCATTERED BRUISES T/O ARMS, HANDS AND ABDOMEN, OTHERWISE C/D/I. ORDERS REVIEWED AND WILL TREAT PRESCRIBED.
--- NOTE | 2021-08-21 10:50 | NUR ---
ORDERS GIVEN BY DR. HAMILTON TO CHANGE PT TO MEDICAL STATUS WITHOUT TELE DURING ROUNDING THIS AM. AROUND 1000, AFTER ADMINISTRATION OF ORAL POTASSIUM, PT VOMITED. PRN ZOFRAN GIVEN. AFTER VOMITING SUBSIDED, PT WAS TRANSPORTED TO [facility] AT 1038, BY WHEELCHAIR. SHE RETURNED AT 1110 AND GOT BACK IN BED. SHE DENIED ANY SUBSEQUENT EPISODES OF VOMITING AND IS NO LONGER NAUSEATED. SHE IS RESTING AT THIS TIME.
--- NOTE | 2021-08-21 18:10 | NUR ---
PT REMAINED A&O X4, ABLE TO REPOSITION SELF FOR COMFORT FREQUENTLY. AFEBRILE T/O SHIFT. OXYGEN HAS BEEN TITRATED DOWN TO 1L NC, SPO2 >92%. SHE MAINLY C/O ABDOMINAL DISTENTION WHICH CAUSES HER DISCOMFORT AND DIFFICULTY BREATHING; HOWEVER, SHE STATES IT IS MANAGABLE. HR WAS SINUS TACH, RATE IN 90-110'S W/ PAC'S. BP STABLE THROUGHOUT SHIFT. DIET HAS BEEN CHANGED TO MECHANICAL SOFT AFTER BARIUM SWALLOW EVAL. MOLINA REMAINS IN PLACE, DRAINING TO GRAVITY, SEBASTIAN CLEAR URINE, 650ML OUT THIS SHIFT. PALLIATIVE CARE WAS CONSULTED AND PLANS DISCUSSED WITH PT'S SON AND [id number]. SHE IS CURRENTLY RESTING QUIETLY. WILL REPORT TO ONCOMING SHIFT WHEN AVAILABLE.
--- NOTE | 2021-08-21 19:49 | NUR ---
ASSUMED CARE: Pt resting comfortably in bed, complained of bloating and asked for medication to help. Will give protonix per orders at 1999. AOx4. Discussed plan of care for the night. Pt currently on RA. Griffin remains in place, catheter care done.
[2021-08-22 03:24] LABS: Hematocrit 30.9 % (33.0-51.0); Hemoglobin 10.8 g/dL (11.5-16.0); Mean Corpuscular HGB 30.7 pg (26.0-34.0); Mean Corpuscular Volume 88 fL (80-100); Mean Platelet Volume 11.1 fL (9.1-12.4); Platelet Count 193 K/mm3 (150-400); RDW Coefficient Variation 12.9 % (11.7-14.2); RDW Standard Deviation 41.3 fL (35.1-46.3); Red Blood Cell Count 3.52 M/mm3 (3.80-5.20); White Blood Cell Count 19.07 K/mm3 (4.00-11.30)
[2021-08-22 03:45] LABS: Albumin, Blood 1.7 g/dL (3.4-5.0); Anion Gap 7 mmol/L (6-16); Blood Urea Nitrogen 25 mg/dL (8-24); Bun/Creatinine Ratio 31.9 (12.0-20.0); CO2, Blood 22 mmol/L (21-32); Calcium, Blood 6.8 mg/dL (8.5-10.1); Chloride, Blood 111 mmol/L (98-108); Creatinine, Blood 0.78 mg/dL (0.40-1.00); Glomerular Filtration Rate >60 (60-); Glucose, Blood 121 mg/dL (70-99); Magnesium, Blood 1.4 mg/dL (1.6-2.4); Phosphorus, Blood 1.1 mg/dL (2.5-4.9); Potassium, Blood 3.2 mmol/L (3.5-5.5); Sodium, Blood 140 mmol/L (136-145)
--- NOTE | 2021-08-22 05:22 | NUR ---
transfer report from INTERSTATE BUS DRIVER Ana M on 76 year old PT with lung bx yesterday results pending lung & kidney nodules. Aspiration preq pneumonia aspiration. Weaned to room air last night. Await transfer to room 229 from ICU 14.
--- NOTE | 2021-08-22 05:52 | NUR ---
SHIFT SUMMARY: Pt AOx4, pleasant and cooperative all night. At the start of shift pt complained of discomfort in the abdomen, gave scheduled IV Protonix which helped pt; otherwise no complaints of pain. Oxygen was weaned off at 1999, pt saturating in the low 90's on RA. Lungs are diminished with intermittent exp. wheezes, had 1x breathing tx at night which helped with breathing per pt. Pt was febrile at 100.3, gave PO tylenol and fever went down within an hour. Nonpitting edema on bilateral lower ext. Griffin remains patent and had adequate urine output, No BM, had nausea after liquid Docusate was given, gave 1x IV Zofran. Pt able to turn independently and reposition self, pt still has rt abdomen gauze intact from biopsy done 08/21. Access: left upper arm 20g PIV remains patent, clean, dry and intact IV infusions: NS @ 125 Recommendations: instead of liquid oral medications try pill form medications. pt has had 2 episodes of n/v when given liquid meds. K+ still low at 3.2, consider giving IV K+ if needing replacement. Mag (1.4) and Phos (1.1) also low. Urine culture from 08/15 resulted with staph epidermis - consult with MD for further assessment on culture. At 0600 pt was tx to Room 329, report given to Dominique BALDERAS.
[2021-08-22] MEDS ORDERED: MAGNESIUM GLU27.5 M1 PO (11:53)
[2021-08-22] MEDS ORDERED: LEVO750 PO (11:53)
[2021-08-22] MEDS ORDERED: NYSTATIN100000 UN1 SS (11:55)
[2021-08-22] MEDS ORDERED: OXAYDO5 M1 PO (11:56)
--- NOTE | 2021-08-22 14:33 | NUR ---
PT DISCHARGED THE PT AND HER VERBALIZED UNDERSTANDING OF THE DC INSTRUCTIONS. THE PT PRESCRIPTIONS WERE FAXED TO [facility] REQUESTED A HARD COPY FOR OXYCODONE WAS SENT WITH THE PT. THE PT WAS TRANSFERED VIA WHEELCHAIR ACCOMPANIED BY THE ELASTIC CUTTER AND HER . AN APPOINTMENT FOR FOLLOW UP WAS MADE WITH DR. LOVE PRIOR TO DC
--- NOTE | 2021-08-22 15:02 | NUR ---
Received referral from nurse day care worker (Domi Boss) on 08/22/2021. Patient discharged today- 08/22/2021 with orders for home health and elected [facility]. Contacted patient's (Duy Kahn) via phone number provided on demographic sheet. Patient's is agreeable to the above. Discussed homebound status definition with patient's . Patient's verbalized understanding. Discussed what home health is vs what it is not (in home caregivers/housekeeping). Patient's verbalized understanding. Discussed the next steps in the process of an initial assessment to determine frequency of visits. Again patient's verbalized understanding. Offered a chance for patient's to ask questions regarding the above of which there were none. Gathered all supporting documentation for referral (face sheet, face to face, med list, H&P, and most recent PT assessment) and sent to [facility] for review. No further interventions required. Cheli Kim Referral Liaison
== END 2021-08-22 14:30 | disposition home health service (06) | DRG 374 ==
LOC: ER 18:57 → SURS 08-16 01:03 → ICUW 08-20 01:05 → MEDS 08-22 05:36
PROVIDERS: Emergency Medicine; Internal Medicine; Student in an Organized Health Care Education/Training Program; ADMIT Internal Medicine
PROC: 0WBH3ZX Excision of Retroperitoneum, Percutaneous Approach, Diagnostic (ICD-10-PCS; principal; 2021-08-20)
DX: C78.6 Secondary malignant neoplasm of retroperitoneum and peritoneum (principal); G92.8 Other toxic encephalopathy; J96.01 Acute respiratory failure with hypoxia; J69.0 Pneumonitis due to inhalation of food and vomit; A41.9 Sepsis, unspecified organism; R65.21 Severe sepsis with septic shock; N39.0 Urinary tract infection, site not specified; E83.52 Hypercalcemia; I10 Essential (primary) hypertension; Z96.653 Presence of artificial knee joint, bilateral; E86.0 Dehydration; E87.6 Hypokalemia; K59.09 Other constipation; M19.90 Unspecified osteoarthritis, unspecified site; D75.839 Thrombocytosis, unspecified; R33.8 Other retention of urine; E83.42 Hypomagnesemia; C80.1 Malignant (primary) neoplasm, unspecified; R13.10 Dysphagia, unspecified; Z90.721 Acquired absence of ovaries, unilateral; Z91.041 Radiographic dye allergy status; Z91.048 Other nonmedicinal substance allergy status; Z98.890 Other specified postprocedural states; Z98.49 Cataract extraction status, unspecified eye; Z79.82 Long term (current) use of aspirin; Z79.899 Other long term (current) drug therapy; Z79.51 Long term (current) use of inhaled steroids
CPT/HCPCS: 20206; 36415; 51701; 70553; 71045; 74176; 74230; 77012; 80048; 80053; 80069; 81001; 82330; 82947; 83605; 83690; 83735; 83880; 83970; 84100; 85025; 85027; 85610; 85730; 86304; 87040; 87077; 87086; 87186; 88305; 88341; 88342; 92526; 92610; 92611; 93005; 93010; 94640; 94762; 96365; 96366; 96368; 96372; 97110; 97116; 97162; 97166; 97530; 97535; 99285-25; A9270; A9579; C9113; J0630; J0696; J0744; J1170; J1650; J1940; J2060; J2405; J2543; J2765; J2930; J3010; J3370; J3475; J3480; J3489; J7030; J7040; J7050; J7120

== ENCOUNTER 2021-09-08 16:22 | Emergency (ER) | payer MEDICARE, OTHER ==
[~2021-09-08] VITALS: Ht 160 cm; Wt 79.4 kg
[~2021-09-08 16:22] MED LIST changes: +LEVO750 PO; +MAGNESIUM GLU27.5 M1 PO; +NYSTATIN100000 UN1 SS; +OXAYDO5 M1 PO
[2021-09-08 17:18] LABS: BASOPHILS ABSOLUTE AUTO 0.07 K/mm3 (0.00-0.23); BASOPHILS PERCENT AUTO 1 % (0-2); EOSINOPHILS ABSOLUTE AUTO 0.06 K/mm3 (0.00-0.68); EOSINOPHILS PERCENT AUTO 1 % (0-6); Hematocrit 38.6 % (33.0-51.0); Hemoglobin 13.3 g/dL (11.5-16.0); IMMATURE GRAN ABSOLUTE AUTO 0.13 K/mm3 (0.00-0.10); IMMATURE GRAN PERCENT AUTO 1 % (0-1); LYMPHOCYTES ABSOLUTE AUTO 1.13 K/mm3 (0.84-5.20); LYMPHOCYTES PERCENT AUTO 10 % (21-46); MONOCYTES ABSOLUTE AUTO 1.23 K/mm3 (0.16-1.47); MONOCYTES PERCENT AUTO 11 % (4-13); Mean Corpuscular HGB 29.7 pg (26.0-34.0); Mean Corpuscular HGB Conc 34.5 g/dL (31.5-36.5); Mean Corpuscular Volume 86 fL (80-100); Mean Platelet Volume 9.9 fL (9.1-12.4); NEUTROPHILS PERCENT AUTO 76 % (41-73); Platelet Count 356 K/mm3 (150-400); RDW Coefficient Variation 15.2 % (11.7-14.2); RDW Standard Deviation 46.4 fL (35.1-46.3); Red Blood Cell Count 4.48 M/mm3 (3.80-5.20); White Blood Cell Count 10.92 K/mm3 (4.00-11.30)
[2021-09-08 17:36] LABS: Alanine Aminotransfer (ALT/SGP 19 U/L (12-78); Albumin, Blood 1.9 g/dL (3.4-5.0); Albumin/Globulin Ratio 0.5 (0.8-1.8); Alk Phos 189 U/L (50-136); Anion Gap 12 mmol/L (6-16); Aspartate Aminotrans (AST/SGOT 33 U/L (12-37); Bilirubin, Total 0.9 mg/dL (0.1-1.0); Blood Urea Nitrogen 30 mg/dL (8-24); Bun/Creatinine Ratio 42.5 (12.0-20.0); CO2, Blood 23 mmol/L (21-32); Calcium, Blood 8.3 mg/dL (8.5-10.1); Chloride, Blood 99 mmol/L (98-108); Creatinine, Blood 0.71 mg/dL (0.40-1.00); Globulin, Blood 4.1 g/dL (2.2-4.0); Glomerular Filtration Rate >60 (60-); Glucose, Blood 131 mg/dL (70-99); Sodium, Blood 134 mmol/L (136-145)
[2021-09-08] MEDS ORDERED: ADULT GLYCERIN1 EACH PR (22:45)
== END 2021-09-08 23:07 | disposition home or self-care (01) ==
LOC: ER 16:22
PROVIDERS: Physician Assistant
DX: K59.00 Constipation, unspecified (principal); R11.0 Nausea; Z91.048 Other nonmedicinal substance allergy status; Z79.82 Long term (current) use of aspirin; Z79.899 Other long term (current) drug therapy; I10 Essential (primary) hypertension; Z87.891 Personal history of nicotine dependence
CPT/HCPCS: 36415; 74019; 80053; 83690; 85025; 93005; 93010; 96374; 96375; 99284-25; A9270; J0780; J2405; J7030

== ENCOUNTER 2021-09-28 19:10 | Inpatient (IN) | payer MEDICARE, OTHER ==
[~2021-09-28] VITALS: Ht 160 cm; Wt 71.4 kg
[~2021-09-28 19:10] MED LIST changes: +ADULT GLYCERIN1 EACH PR
[2021-09-28] MEDS ORDERED: XARELTO20 MG PO (19:23)
[2021-09-28] MEDS ORDERED: ONDA4 PO (19:23)
[2021-09-28] MEDS ORDERED: PANT40 PO (19:24)
[2021-09-28 20:01] LABS: BASOPHILS ABSOLUTE AUTO 0.01 K/mm3 (0.00-0.23); BASOPHILS PERCENT AUTO 0 % (0-2); EOSINOPHILS ABSOLUTE AUTO 0.01 K/mm3 (0.00-0.68); EOSINOPHILS PERCENT AUTO 0 % (0-6); Hematocrit 34.2 % (33.0-51.0); Hemoglobin 11.3 g/dL (11.5-16.0); IMMATURE GRAN ABSOLUTE AUTO 0.15 K/mm3 (0.00-0.10); IMMATURE GRAN PERCENT AUTO 1 % (0-1); LYMPHOCYTES ABSOLUTE AUTO 0.53 K/mm3 (0.84-5.20); LYMPHOCYTES PERCENT AUTO 3 % (21-46); MONOCYTES ABSOLUTE AUTO 0.19 K/mm3 (0.16-1.47); MONOCYTES PERCENT AUTO 1 % (4-13); Mean Corpuscular Volume 88 fL (80-100); Mean Platelet Volume 10.1 fL (9.1-12.4); NEUTROPHILS ABSOLUTE AUTO 16.14 K/mm3 (1.96-9.15); NEUTROPHILS PERCENT AUTO 95 % (41-73); Platelet Count 431 K/mm3 (150-400); RDW Standard Deviation 52.8 fL (35.1-46.3); Red Blood Cell Count 3.89 M/mm3 (3.80-5.20); White Blood Cell Count 17.03 K/mm3 (4.00-11.30)
[2021-09-28 20:15] LABS: Albumin, Blood 1.7 g/dL (3.4-5.0); Albumin/Globulin Ratio 0.4 (0.8-1.8); Bilirubin, Total 0.9 mg/dL (0.1-1.0); Bun/Creatinine Ratio 47.4 (12.0-20.0); Calcium, Blood 7.9 mg/dL (8.5-10.1); Creatinine, Blood 1.96 mg/dL (0.40-1.00); Globulin, Blood 4.7 g/dL (2.2-4.0); Magnesium, Blood 2.2 mg/dL (1.6-2.4); Potassium, Blood 3.3 mmol/L (3.5-5.5); Total Protein, Blood 6.4 g/dL (6.4-8.2)
[2021-09-28 23:13] LABS: Source, Urine Catheter
[2021-09-28 23:17] LABS: Bilirubin, Urine Neg (Neg); Blood, Urine 1+ (Neg); Glucose Qualitative, Urine Neg (Neg); Ketones, Urine 1+ (Neg); Leukocyte Esterase, Urine Neg (Neg); Nitrite, Urine Neg (Neg); Protein, Urine 1+ (Neg); Specific Gravity, Urine 1.015 (1.003-1.022); Urobilinogen, Urine 1+ (Normal)
[2021-09-29 00:01] LABS: Appearance, Urine Hazy (Clear); Color, Urine Yellow (P-Yellow)
[2021-09-29 00:02] LABS: Amorphous Mod (0-Heavy); Bacteria Rare /hpf; Hyaline Casts 0-2 /lpf (0-2); Red Blood Cells, Urine 0-2 /hpf (0-2); Squamous Epithelial Cells Not Seen /hpf (Few); Transitional Epithelial Cells Few /hpf (0-Rare); White Blood Cells, Urine Rare /hpf (0-5)
--- NOTE | 2021-09-29 03:57 | NUR ---
PATIENT IS A NEW ADMIT FROM THE ED. FOUR PERSON TRANSFER FROM [facility] TO BED. AXO X 4 AND BEDREST. REPORTS SHE HAS NOT BEEN UP FOR A FEW DAYS. LR INFUSING AT 150 mL/HR FROM THE ED. ON 3L O2 NC AND 2L O2 BASELINE. N/V ON ADMIT. DENIES CHEST PAIN AND SOB. PATIENT ORIENTED TO ROOM AND CALL LIGHT SYSTEM. EDEMA BLE 2-3+. REPORTS SHE HAD PARACENTESIS 09/22/21. RESTING IN BED. CALL LIGHT IN REACH.
--- NOTE | 2021-09-29 04:43 | NUR ---
PATIENT NAUSEOUS AND VOMITING. IV COMPAZINE 10 MG GIVEN PER EMAR. WCTM
--- NOTE | 2021-09-29 04:57 | NUR ---
PATIENT IS A NEW ADMIT FROM THE ED. FOUR PERSON TRANSFER FROM [facility] TO BED. AXO X 4 AND BEDREST. DENIES CHEST PAIN AND SOB. ON 3L O2 NC. LR INFUSING AT 150 mL/HR FROM THE ED. PATIENT REPORTS SHE HAD PARACENTESIS ON 09/25/21. NAUSEOUS ON ADMIT. ORIENTED TO ROOM AND CALL LIGHT SYSTEM.
[2021-09-29 05:36] LABS: BASOPHILS ABSOLUTE AUTO 0.01 K/mm3 (0.00-0.23); BASOPHILS PERCENT AUTO 0 % (0-2); EOSINOPHILS PERCENT AUTO 0 % (0-6); Hematocrit 31.4 % (33.0-51.0); Hemoglobin 10.3 g/dL (11.5-16.0); IMMATURE GRAN ABSOLUTE AUTO 0.11 K/mm3 (0.00-0.10); IMMATURE GRAN PERCENT AUTO 1 % (0-1); LYMPHOCYTES ABSOLUTE AUTO 0.27 K/mm3 (0.84-5.20); LYMPHOCYTES PERCENT AUTO 2 % (21-46); MONOCYTES ABSOLUTE AUTO 0.11 K/mm3 (0.16-1.47); MONOCYTES PERCENT AUTO 1 % (4-13); Mean Corpuscular HGB 29.3 pg (26.0-34.0); Mean Corpuscular HGB Conc 32.8 g/dL (31.5-36.5); Mean Corpuscular Volume 89 fL (80-100); Mean Platelet Volume 10.3 fL (9.1-12.4); NEUTROPHILS ABSOLUTE AUTO 15.95 K/mm3 (1.96-9.15); NEUTROPHILS PERCENT AUTO 97 % (41-73); Platelet Count 369 K/mm3 (150-400); RDW Coefficient Variation 17.2 % (11.7-14.2); RDW Standard Deviation 54.5 fL (35.1-46.3); Red Blood Cell Count 3.52 M/mm3 (3.80-5.20); White Blood Cell Count 16.45 K/mm3 (4.00-11.30)
[2021-09-29 06:35] LABS: Bun/Creatinine Ratio 51.8 (12.0-20.0); Calcium, Blood 7.4 mg/dL (8.5-10.1); Creatinine, Blood 1.68 mg/dL (0.40-1.00); Potassium, Blood 3.4 mmol/L (3.5-5.5)
--- NOTE | 2021-09-29 17:33 | NUR ---
PT A/O X4. INTERMITTENT NAUSEA/VOMITING. ADMINITERED PRN MEDS FOR N/V PER EMAR. FAMILY AT BEDSIDE. PT UP TO COMMODE X3 WITH STAFF ASSISTANCE. PT DENIES PAIN. PT SATTING AT 98-100 ON 2 L NC. NO ACUTE CHANGES. WILL CONTINUE TO MONITOR
--- NOTE | 2021-09-30 05:13 | NUR ---
SHIFT SUMMARY PT HAS BEEN AWAKE OFF AND ON T/O THE NIGHT. PT STILL HAVING FREQUENT INTERMITTENT BOUTS OF N/V ESPECIALLY AT THE BEGINNING OF THE SHIFT. EPISODES SLOWED DOWN THE NIGHT PROGRESSED. PT MEDICATED PER EMAR WITH ANTIEMETICS WHICH DID PROVIDE RELIEF. THIS AM PT REPORTS THAT HER NAUSEA HAS IMPROVED. PT ABD IS DISTENDED AND FIRM, PT UNABLE TO RECALL WHEN HER LAST BM WAS. BOWEL CARE HAS BEEN ORDERED BUT PT UNABLE TO TAKE ANYTHING ORAL D/T N/V. DR. QUINTANA CALLED AND NOTIFIED AND NOTIFIED HIM OF FIRM AND DISTENDED ABD AND RECEIVED ORDER FOR SUPPOSITORY. SUPPOSITORY GIVEN BUT PT STILL HAS NOT HAD BM. IVF INFUSED PER ORDERS. PT AMBULATING WITH 1 PA TO THE BSC. VITALS TRENDING AROUND BASELINE SINCE ADMISSION. BED IN LOWEST POSITION, CALL LIGHT WITHIN REACH.
[2021-09-30 05:38] LABS: Hematocrit 30.6 % (33.0-51.0); Hemoglobin 10.1 g/dL (11.5-16.0); Mean Corpuscular HGB 29.2 pg (26.0-34.0); Mean Corpuscular Volume 88 fL (80-100); Mean Platelet Volume 10.3 fL (9.1-12.4); Platelet Count 289 K/mm3 (150-400); RDW Coefficient Variation 16.8 % (11.7-14.2); RDW Standard Deviation 53.9 fL (35.1-46.3); Red Blood Cell Count 3.46 M/mm3 (3.80-5.20); White Blood Cell Count 20.91 K/mm3 (4.00-11.30)
[2021-09-30 06:18] LABS: Albumin, Blood 1.5 g/dL (3.4-5.0); Albumin/Globulin Ratio 0.4 (0.8-1.8); Bilirubin, Total 0.8 mg/dL (0.1-1.0); Bun/Creatinine Ratio 60.8 (12.0-20.0); Calcium, Blood 7.4 mg/dL (8.5-10.1); Creatinine, Blood 1.53 mg/dL (0.40-1.00); Globulin, Blood 3.5 g/dL (2.2-4.0); Potassium, Blood 3.8 mmol/L (3.5-5.5)
--- NOTE | 2021-09-30 19:51 | NUR ---
SHIFT SUMMARY: PT A/O X 3 ON BEDREST. PT HAS HAD N/V/D THROUGHOUT THE DAY. PT VOMITING BROWN LIQUID. PT CONTINUES TO HAVE DISTENDED ABD. PT WEAK AND LETHARGIC.
--- NOTE | 2021-09-30 21:15 | NUR ---
RAPID RESPONSE THIS RN RESPONDED TO PT ROOM AROUND 2114 TO FIND PT SITTING UP AND NONRESPONSIVE TO VERBAL OR TACTILE STIMILATION, PT HAD VOMITTED AND IT WAS ON HER FACE AND CHEST. LUNG SOUNDS WITH CRACKLES T/O. IT IS BELIVED THAT PT HAD ASPIRATED. UPON MY SHIFT ASSESSMENT SHORTLY AFTER SHIFT CHANGE PT WAS AWAKE A/OX3, AND VERBALLY RESPONDING. PT REPORTED NAUSEA AND WAS VOMITTING, UNCHANGED SINCE ADMISSION. I MEDICATED HER WITH COMPAZINE FOR NAUSEA AND HUNG A NEW BAG OF LR, AND GAVE PT FRESH LINENS. PT WAS SITTING UP WITH HOB ELEVATED AND WATCHING TV WHEN I LEFT THE ROOM, A/OX4. WHEN I ROUNDED ON PT AT 2114, I FOUND HER SITTING UP AND NONRESPONSIVE WITH EMESIS ON CHEST. FRUIT PACKER FACE AND FILL IMMEDIATELY CALLED, FRENCH FOLDER CINDY, ACCOUNT SERVICES MANAGER'S SANJANA DIA AND CLOTILDE AGUAYO RESPONDED TO THE ROOM. RT BEGAN DEEP SUCTIONING, AND VITALS CYCLED ON MACHINE. RESP 28. SATS UPPER 80'S ON 2L. NON REBREATHER PLACED ON PT AND O2 INCREASED FROM 2L TO 15L AND SATS INCREASED TO THE UPPER 90'S. PT BEGAN RESPONDING ONCE RT BEGAN SUCTIONING, AND TRIED TO REMOVE NONREBREATHER WITH HER HANDS. RT SUCTIONED LARGE AMOUNTS OF BROWN EMESIS. DR. YUAN RESPONDED TO ROOM SHORTLY AFTER FRUIT PACKER FACE AND FILL WAS CALLED AND ORDERED 1L BOLUS OF LR, AND [address] YUAN ALSO ORDERED FOR TRANSFER TO PCU. PCU ROOM NOT AVALIBLE AT THIS TIME, AND WAITING FOR HOUSEKEEPING TO CLEAN. 1 HOUR WAIT PER CHILD HEALTH ASSOCIATE ELEAZAR FLORES. 2127 DR. YUAN SPOKE WITH PT SPOUSE AND UPDATED HIM OF STATUS CHANGE. 2136 MEDICATIONS ADMINISTERED, AND FLUID BOLUS INFUSING. BP IMPROVING, AND SATS REMAIN STABLE IN THE 90'S. FRENCH FOLDER AND ACCOUNT SERVICES MANAGER AT BEDSIDE WITH PT. 2229 ROOM CLEANED. REPORT CALLED TO BUGGY OPERATOR, AND PT TRANSFERRED TO PCU 10 ON 15L NON REBREATHER, WITH BELONGINGS IN PLACE.
--- NOTE | 2021-09-30 22:52 | NUR ---
MULTIPLE ORAL SUCTION DONE BY RT AND RN. RT DID NASAL SUCTIONING WITH NASAL TRUMPET IN PLACE X 2 AT 2131 AND 2154.
--- NOTE | 2021-10-01 03:58 | NUR ---
TRANSFER NOTE PT ARRIVED TO PCU FROM MEDICAL FLOOR VIA BED AT APPROX 2230. PT LETHARGIC, ABLE TO NOD YES, NOT SPEAKING. SP02 PLEATH WAS HARD TO READ INITALLY D/T COLD EXTREMETITIES. SP02 BETWEEN 66%-88% ON 15L NON REBREATHER. PT GUPPY BREATHING. PT ARRIVED WITH NASAL TRUMPET IN R NARE FOR SUCTIONING. WHEN SUCTIONED, ABLE TO REMOVED RED LIQUID. NG TUBE PLACED TO INTERMITTENT SUCTION, SUCTIONING DARK LIQUID. TWO RT IN ROOM TO SUCTION. PT HAD POWER GLIDE IN JACOBO INFUSING NS. PT SATS NOT ABOVE 90%, BP DECREASING TO 70'S SYSTOLIC. CALL PLACED TO PT'S TO UPDATE ON PT'S CONDITION. DURING THIS PHONE CALL, PT PULLED OUT NASAL TRUMPET AND NG TUBE, REMOVED NON REBREATHER. PT ARRIVED TO BEDSIDE SHORTLY AFTER PHONE CALL. PT ATTEMPTED TO REMOVED NON REBREATHER. THIS RN REPLACED NON REBREATHER, EXPLAINED TO HOW IT PROVIDES OXYGEN AND THE PT DESATS WITH OUT IT. PT STATED "SHE WANTS IT OFF, LET HER TAKE IT OFF". AND PT EDUCATED THAT PT WOULD DESAT WITHOUT NON REBREATHER. PT'S CONFIRMED HE WANTED IT OFF BC PT WAS PULLING IT OFF. PT AT 0112.
== END 2021-10-01 03:52 | DRG 682 ==
LOC: ER 19:10 → MEDS 22:48 → ERHOLD 22:48 → MEDS 09-29 03:02 → PCU 09-30 22:23
PROVIDERS: Emergency Medicine; Internal Medicine; ADMIT Internal Medicine
DX: N17.9 Acute kidney failure, unspecified (principal); J96.01 Acute respiratory failure with hypoxia; C25.9 Malignant neoplasm of pancreas, unspecified; C79.9 Secondary malignant neoplasm of unspecified site; Z66 Do not resuscitate; E86.0 Dehydration; I95.9 Hypotension, unspecified; T45.1X5A Adverse effect of antineoplastic and immunosuppressive drugs, initial encounter; E87.6 Hypokalemia; R11.2 Nausea with vomiting, unspecified; I10 Essential (primary) hypertension; M19.90 Unspecified osteoarthritis, unspecified site; D63.0 Anemia in neoplastic disease; Z96.653 Presence of artificial knee joint, bilateral; D72.829 Elevated white blood cell count, unspecified; Z96.642 Presence of left artificial hip joint; Z92.21 Personal history of antineoplastic chemotherapy; Z90.722 Acquired absence of ovaries, bilateral; Z91.041 Radiographic dye allergy status; Z91.09 Other allergy status, other than to drugs and biological substances; Z98.890 Other specified postprocedural states; Z87.891 Personal history of nicotine dependence; Z86.718 Personal history of other venous thrombosis and embolism; Z79.899 Other long term (current) drug therapy
CPT/HCPCS: 36415; 71045; 74022; 80048; 80053; 81001; 82947; 83735; 85025; 85027; 96361; 96374; 99285-25; A9270; J0295; J0780; J1630; J2405; J2930; J7030; J7120